=== PATIENT | male | born 1965 | race Caucasian/White ===

== ENCOUNTER 2018-02-28 05:25 | Day surgery (SDC) | payer OTHER | END 2018-02-28 15:30 | disposition home or self-care (01) | LOC: CIR.AMB 05:25 | DX: K40.91 Unilateral inguinal hernia, without obstruction or gangrene, recurrent (principal) ==

== ENCOUNTER 2024-09-15 07:22 | Outpatient (CLI) | payer OTHER | END 2024-09-15 07:32 | disposition home or self-care (01) | LOC: TOM 07:22 | PROVIDERS: ATTEND Urology | DX: C61 Malignant neoplasm of prostate (principal) | CPT/HCPCS: 72194; Q9965 ==